=== PATIENT | female | born 1945 | race Two or more races ===

== ENCOUNTER 2021-11-07 15:07 | Inpatient (IN) | payer OTHER, MEDICAID ==
[~2021-11-07] VITALS: Ht 157.5 cm; Wt 59.9 kg
[2021-11-07] MEDS ORDERED: SODIUM CHLORIDE 0.9% 500 ML IV ONE (15:45)
[2021-11-07] MEDS ORDERED: HYDROmorphone HCL 2 MG/ML VL IV ONE ×2 (15:45→17:15)
[2021-11-07] MEDS ORDERED: ONDANSETRON HCL 4 MG/2 ML VIAL IV ONE (15:45)
[2021-11-07 16:14] LABS: Basophils # (auto) 0.1 10 ^3/uL (0-0.2); Basophils % (auto) 0.7 % (0.0-2.0); Eosinophils # (auto) 0.3 10 ^3/uL (0-0.8); Eosinophils % (auto) 2.3 % (0.0-7.0); Hematocrit 38.6 % (36.0-46.0); Hemoglobin 13.6 g/dL (12.2-16.2); Lymphocytes # (auto) 1.5 10 ^3/uL (0.4-5.4); Lymphocytes % (auto) 13.7 % (10.0-50.0); Mean Corpuscular Hemoglobin 30.1 pg (28.0-32.0); Mean Corpuscular Hgb Conc. 35.3 g/dL (32.0-36.0); Mean Corpuscular Volume 85.1 fL (80.0-100.0); Monocytes # (auto) 0.5 10 ^3/uL (0-1.3); Monocytes % (auto) 4.6 % (0.0-12.0); Neutrophils # (auto) 8.8 10 ^3/uL (1.6-8.6); Neutrophils % (auto) 78.7 % (37.0-80.0); Nucleated Red Blood Cells % 0.2 %; Red Blood Cells 4.54 10^6/uL (4.0-5.20); Red Cell Distribution Width 13.2 % (11.8-14.3); White Blood Cell 11.2 10^3/uL (4.4-10.8)
[2021-11-07 16:41] LABS: Albumin 4.1 g/dL (3.4-5.0); Anion Gap 7 (5-15); Blood Urea Nitrogen 27 mg/dL (7-18); Calcium 9.6 mg/dL (8.5-10.1); Carbon Dioxide 23 mmol/L (21-32); Chloride 104 mmol/L (98-107); Glucose 117 mg/dL (74-106); Potassium 3.9 mmol/L (3.5-5.1); Sodium 134 mmol/L (136-145)
[2021-11-07 16:46] LABS: Alanine Aminotransferase 21 U/L (13-56); Alkaline Phosphatase 131 U/L (45-117); Aspartate Aminotransferase 24 U/L (15-37); BUN/Creatinine Ratio 19.9; Bilirubin, Total 0.4 mg/dL (0.2-1.0); GFR African American 48 mL/min; GFR Non-African American 40 mL/min; Total Protein 8.5 g/dL (6.4-8.2)
[2021-11-07] MEDS ORDERED: PROPOFOL 10 MG/ML 20 ML IV ONE (17:15)
[2021-11-07] MEDS ORDERED: PROPOFOL 100 ML IV ONE (17:38)
[2021-11-07] MEDS ORDERED: ONDANSETRON HCL 4 MG/2 ML VIAL IV PRN (20:45)
[2021-11-07] MEDS ORDERED: ACETAMINOPHEN 325 MG TAB PO PRN (20:45)
[2021-11-07] MEDS: HYDROcodone-ACET 5/325MG TAB PO PRN (23:00)
[2021-11-07] MEDS: HEPARIN SODIUM (PORCINE) 5000 UNITS/ML 1ML VIAL SC SCH (23:00)
[2021-11-07] MEDS: SODIUM CHLORIDE 0.9% 1,000 ML IV SCH (23:14)
[2021-11-07 23:33] VITALS: BP 118/58
[2021-11-08] MEDS: MORPHINE SULFATE 4 MG/ML SYR/VIAL IV PRN ×2 (02:45→07:06)
[2021-11-08 05:00] VITALS: BP 121/56
[2021-11-08 06:31] LABS: Basophils # (auto) 0 10 ^3/uL (0-0.2); Eosinophils # (auto) 0.1 10 ^3/uL (0-0.8); Lymphocytes % (auto) 21.5 % (10.0-50.0); Monocytes # (auto) 0.4 10 ^3/uL (0-1.3); Nucleated Red Blood Cells % 0.1 %
[2021-11-08 06:33] LABS: Basophils % (auto) 0.8 % (0.0-2.0); Eosinophils % (auto) 1.2 % (0.0-7.0); Hematocrit 31.3 % (36.0-46.0); Hemoglobin 11.2 g/dL (12.2-16.2); Lymphocytes # (auto) 1.2 10 ^3/uL (0.4-5.4); Mean Corpuscular Hemoglobin 34.5 pg (28.0-32.0); Mean Corpuscular Hgb Conc. 35.9 g/dL (32.0-36.0); Mean Corpuscular Volume 96.2 fL (80.0-100.0); Monocytes % (auto) 6.1 % (0.0-12.0); Neutrophils # (auto) 4.1 10 ^3/uL (1.6-8.6); Neutrophils % (auto) 70.4 % (37.0-80.0); Red Blood Cells 3.25 10^6/uL (4.0-5.20); White Blood Cell 5.8 10^3/uL (4.4-10.8)
[2021-11-08 06:44] LABS: Potassium 3.5 mmol/L (3.5-5.1)
[2021-11-08] MEDS: HEPARIN SODIUM (PORCINE) 5000 UNITS/ML 1ML VIAL SC SCH ×3 (06:47→21:59)
[2021-11-08] MEDS: HYDROcodone-ACET 5/325MG TAB PO PRN ×3 (06:50→21:58)
[2021-11-08 06:56] LABS: Albumin 2.7 g/dL (3.4-5.0); BUN/Creatinine Ratio 20.2; Bilirubin, Total 0.2 mg/dL (0.2-1.0); Calcium 6.8 mg/dL (8.5-10.1); Total Protein 5.8 g/dL (6.4-8.2)
[2021-11-08 08:00] VITALS: BP 132/63
[2021-11-08] MEDS ORDERED: PANTOPRAZOLE 40 MG TAB PO SCH (10:00)
[2021-11-08] MEDS ORDERED: CALCIUM GLUC 1,000mg/50ml-NS 50 ML IV ONE (12:15)
[2021-11-08] MEDS: SODIUM CHLORIDE 0.9% 1,000 ML IV SCH (13:25)
[2021-11-08] MEDS: CALCIUM CARB 500 MG CHEW TAB PO SCH (18:00)
[2021-11-08 23:09] VITALS: BP 114/40
[2021-11-09] MEDS: MORPHINE SULFATE 4 MG/ML SYR/VIAL IV PRN (00:17)
[2021-11-09 05:21] VITALS: BP 143/63
[2021-11-09] MEDS: HEPARIN SODIUM (PORCINE) 5000 UNITS/ML 1ML VIAL SC SCH ×3 (05:48→21:55)
[2021-11-09] MEDS: HYDROcodone-ACET 5/325MG TAB PO PRN ×3 (05:57→20:03)
[2021-11-09 08:00] VITALS: BP 97/58
[2021-11-09] MEDS: CALCIUM CARB 500 MG CHEW TAB PO SCH ×3 (08:00→18:00)
[2021-11-09 12:00] VITALS: BP 146/67
[2021-11-09 16:42] VITALS: BP 158/74
[2021-11-09] MEDS: SODIUM CHLORIDE 0.9% 1,000 ML IV SCH ×2 (18:00→22:45)
[2021-11-09 19:34] LABS: BUN/Creatinine Ratio 9.9; Calcium 10.1 mg/dL (8.5-10.1); Potassium 5.5 mmol/L (3.5-5.1)
[2021-11-09 21:55] VITALS: BP 133/66
[2021-11-10 04:43] VITALS: BP 141/71
[2021-11-10] MEDS: HYDROcodone-ACET 5/325MG TAB PO PRN ×2 (06:09→20:48)
[2021-11-10] MEDS: HEPARIN SODIUM (PORCINE) 5000 UNITS/ML 1ML VIAL SC SCH ×3 (06:12→21:00)
[2021-11-10] MEDS: CALCIUM CARB 500 MG CHEW TAB PO SCH ×2 (08:00→12:00)
[2021-11-10 09:00] VITALS: BP 150/76
[2021-11-10 10:11] LABS: BUN/Creatinine Ratio 7.8
[2021-11-10] MEDS: LACTATED RINGER'S 1,000 ML IV SCH (12:45)
[2021-11-10 13:00] VITALS: BP 136/88
[2021-11-10] MEDS ORDERED: POLYETHYLENE GLYCOL 17 GM PWDR PO ONE (16:45)
[2021-11-10 17:00] VITALS: BP 136/75
[2021-11-10 22:00] VITALS: BP 146/75
[2021-11-11] MEDS: LACTATED RINGER'S 1,000 ML IV SCH (01:22)
[2021-11-11 05:00] VITALS: BP 132/75
[2021-11-11] MEDS: HYDROcodone-ACET 5/325MG TAB PO PRN ×3 (05:34→20:52)
[2021-11-11] MEDS: HEPARIN SODIUM (PORCINE) 5000 UNITS/ML 1ML VIAL SC SCH ×3 (05:35→20:53)
[2021-11-11 06:21] LABS: Potassium 5.3 mmol/L (3.5-5.1)
[2021-11-11 06:30] LABS: BUN/Creatinine Ratio 11.3; Calcium 9.8 mg/dL (8.5-10.1)
[2021-11-11 08:00] VITALS: BP 141/77
[2021-11-11 08:30] VITALS: BP 141/77
[2021-11-11] MEDS: POLYETHYLENE GLYCOL 17 GM PWDR PO SCH (10:12)
[2021-11-11 12:00] VITALS: BP 140/72
[2021-11-11 14:20] VITALS: BP 152/75
[2021-11-11 15:09] LABS: Urine Bacteria FEW /hpf (None Seen); Urine Blood Negative /uL (Negative); Urine Specific Gravity 1.003 (1.001-1.035); Urine WBC 20 /hpf (0 - 5)
[2021-11-11] MEDS ORDERED: cefTRIAXone 1GM/50ML D5W 50 ML IV ONE (16:15)
[2021-11-11 22:00] VITALS: BP 145/88
[2021-11-12 05:00] VITALS: BP 126/65
[2021-11-12] MEDS: HYDROcodone-ACET 5/325MG TAB PO PRN ×3 (06:13→21:29)
[2021-11-12 06:14] LABS: Basophils # (auto) 0.1 10 ^3/uL (0-0.2); Basophils % (auto) 1.3 % (0.0-2.0); Eosinophils # (auto) 0.3 10 ^3/uL (0-0.8); Eosinophils % (auto) 5.7 % (0.0-7.0); Hematocrit 36.2 % (36.0-46.0); Hemoglobin 13.2 g/dL (12.2-16.2); Lymphocytes # (auto) 1.3 10 ^3/uL (0.4-5.4); Lymphocytes % (auto) 23.9 % (10.0-50.0); Mean Corpuscular Hemoglobin 32.5 pg (28.0-32.0); Monocytes # (auto) 0.3 10 ^3/uL (0-1.3); Neutrophils # (auto) 3.3 10 ^3/uL (1.6-8.6); Neutrophils % (auto) 63.1 % (37.0-80.0); Nucleated Red Blood Cells % 0.1 %; Red Blood Cells 4.07 10^6/uL (4.0-5.20); Red Cell Distribution Width 13.5 % (11.8-14.3); White Blood Cell 5.3 10^3/uL (4.4-10.8)
[2021-11-12] MEDS: HEPARIN SODIUM (PORCINE) 5000 UNITS/ML 1ML VIAL SC SCH ×3 (06:14→21:29)
[2021-11-12 06:32] LABS: Mean Corpuscular Hgb Conc. 36.5 g/dL (32.0-36.0)
[2021-11-12 06:34] LABS: BUN/Creatinine Ratio 12.7; Calcium 9.6 mg/dL (8.5-10.1)
[2021-11-12 08:53] VITALS: BP 142/71
[2021-11-12] MEDS: cefTRIAXone 1GM/50ML D5W 50 ML IV SCH (09:38)
[2021-11-12] MEDS: POLYETHYLENE GLYCOL 17 GM PWDR PO SCH (09:38)
[2021-11-12 12:33] VITALS: BP 134/71
[2021-11-12 17:00] VITALS: BP 140/73
[2021-11-12 22:00] VITALS: BP 143/56
[2021-11-13 05:00] VITALS: BP 144/79
[2021-11-13] MEDS: HEPARIN SODIUM (PORCINE) 5000 UNITS/ML 1ML VIAL SC SCH (05:50)
[2021-11-13] MEDS: HYDROcodone-ACET 5/325MG TAB PO PRN (05:50)
[2021-11-13 08:00] VITALS: BP 151/76
[2021-11-13] MEDS: cefTRIAXone 1GM/50ML D5W 50 ML IV SCH (09:00)
[2021-11-13] MEDS: POLYETHYLENE GLYCOL 17 GM PWDR PO SCH (09:22)
[2021-11-13 12:00] VITALS: BP 142/77
[2021-11-13 13:14] VITALS: BP 151/76
== END 2021-11-13 14:30 | disposition home health service (06) | DRG 871 ==
LOC: ER 15:07 → EDBD 15:07 → TELE 20:44 → TELE-CENTR 22:33
PROVIDERS: ADMIT Internal Medicine; ATTEND Internal Medicine
PROC: 0PSCXZZ Reposition Right Humeral Head, External Approach (ICD-10-PCS; principal; 2021-11-07)
DX: A41.9 Sepsis, unspecified organism (principal); N17.0 Acute kidney failure with tubular necrosis; N39.0 Urinary tract infection, site not specified; R55 Syncope and collapse; S43.014A Anterior dislocation of right humerus, initial encounter; E83.51 Hypocalcemia; I10 Essential (primary) hypertension; M19.90 Unspecified osteoarthritis, unspecified site; S00.11XA Contusion of right eyelid and periocular area, initial encounter; E87.5 Hyperkalemia; Z96.651 Presence of right artificial knee joint; W01.0XXA Fall on same level from slipping, tripping and stumbling without subsequent striking against object, initial encounter; Y93.89 Activity, other specified; Y92.89 Other specified places as the place of occurrence of the external cause; Y99.8 Other external cause status; E04.1 Nontoxic single thyroid nodule; Z88.8 Allergy status to other drugs, medicaments and biological substances; Z91.012 Allergy to eggs
CPT/HCPCS: 23650; 36415; 70450; 71250; 72125; 73020; 73030; 73600; 76536; 80048; 80053; 81001; 84443; 84484; 85025; 87086; 87088; 87186; 93005; 93306; 93886; 96361; 96365; 96375; 96376; 97116; 97163; 97530; G0378; J0696; J2405; J2704